=== PATIENT | male | born 2005 | race Caucasian/White ===

== ENCOUNTER 2023-01-05 16:25 | Emergency (ER) | payer MEDICAID, SELFPAY ==
[2023-01-05 16:56] VITALS: BP 123/78; PULSE 62; O2SAT 99
[2023-01-05 16:58] VITALS: BP 123/78; PULSE 68; RESP 16; TEMP 36.7; O2SAT 100; BMI 16.2
--- NOTE | 2023-01-05 17:02 | XR_ITS ---
PROCEDURE INFORMATION: Exam: XR Right Hand Exam date and time: 01/05/2023 5:13 PM Age: 17 years old Clinical indication: Injury or trauma; Other: Punched dog; Other: Punching injury; Additional info: Deformity TECHNIQUE: Imaging protocol: Radiologic exam of the right hand. Views: 3 or more views. COMPARISON: No relevant prior studies available. FINDINGS: Bones/joints: There is a nondisplaced fracture of the neck of the 5th metacarpal with slight palmar angulation of the distal fragment. No other acute fracture. Osseous alignment is otherwise normal. No arthritic change. Soft tissues: Moderate soft tissue swelling noted overlying the area of fracture IMPRESSION: Nondisplaced boxer's fracture of the 5th metacarpal
--- NOTE | 2023-01-05 17:16 | HMH.EDGENADL ---
Discharge Plan Disposition Patient Disposition: Home, Self-Care Condition: Good Prescriptions Prescriptions: New tramadol 100 mg tablet 100 mg PO Q8H PRN (Reason: pain) Qty: 10 0RF Referrals Follow up/Referrals: Provider,Referral, [Primary Care Provider] - See instructions Clinical Impressions Clinical Impression: Boxer's fracture Instructions Patient Instructions: DI for Boxer's Fracture Print Language Print Language: Spanish Discharge ED Provider: Familia Brar General Adult HPI General Chief complaint: Extremity Injury, Upper Stated complaint: AO 01/05@1600 hit floor with R Hand Little finger Time Seen by Provider: 01/05/23 17:44 Mode of Arrival: Ambulatory Source of Information: Patient Limitations: No Limitations Description of Symptoms (Recalled from ER Triage Doc. by RN): 17 yo M presents with right hand pain. pt reports that he was upset with his dog and punched the floor. swelling noted in right pinky joint. History of Present Illness HPI narrative: Patient presents to the emergency department with right hand injury. The patient states that he got mad at his dog and punched the ground. He comes in with a deformity and hand pain. He states he is right-hand dominant. States that this happened just prior to arrival. Denies any wrist pain. Denies any significant pain with movement of the right elbow Related Data Previous Rx's Medication Instructions Recorded tramadol 100 mg tablet 100 mg PO Q8H PRN pain #10 tabs 01/05/23 Allergies Allergy/AdvReac Type Severity Reaction Status Date / Time No Known Allergies Allergy Unverified 08/08/17 15:16 [facility] Disclaimer: The information contained in this section may have been updated after the patient was seen, as this information can be updated by other users. Social History Smoking Status: Current every day smoker alcohol intake: current current occupational status: unemployed Travel in the last 8 weeks: None ROS Obtained: Yes All systems reviewed & no additional complaints except as documented Musculoskeletal Musculoskeletal: Reports other (Hand deformity, pain, swelling) Physical Exam General General appearance: alert and in no apparent distress Head Head exam: atraumatic and normocephalic Eye Eye exam: Present normal appearance, PERRL and EOMI Respiratory Respiratory exam: Present normal lung sounds bilaterally Cardiovascular Cardiovascular exam: Present regular rate, normal rhythm and normal heart sounds Extremities Exam Extremities exam: Present other (Shortening of the small finger metatarsal. There is proximal to flexion of the MCP joint. Significant swelling, contusion. Capillary refills less than 2 seconds distally) Neurological Exam Neurological exam: Present alert and oriented X3 Psychiatric Psychiatric exam: Present normal affect Medical Decision Making Medical Records Medical records reviewed: Yes I reviewed the patient's medical records. [place]otero Inquiry Pt receiving controlled substance: No Vital Signs: 01/05/23 16:58 Temperature 98.1 F Temperature Source Oral Pulse Rate [Left] 68 Respiratory Rate 16 Blood Pressure [Right Arm] 123/78 Blood Pressure Mean [Right Arm] 93 02 Sat by Pulse Oximetry 100 Orders (Tests/Meds): ED MEDICATIONS Discontinued Medications Generic Name Dose Route Start Last Admin Trade Name Freq PRN Reason Stop Dose Admin Hydrocodone Bitart/Acetaminophen 2 tab 01/05/23 17:02 01/05/23 17:16 Hydrocodone/Apap 5/325 Mg Tablet PO 01/05/23 17:03 2 tab ONCE ONE Administration ORDERS Category Date Time Status Hand XR right minimum 3 views [XR hand RT min 3V] Stat Exams 01/05/23 17:02 Taken Medical Decision Narrative: Patient was evaluated x-rays are concerning for fifth metacarpal fracture. There was slight angulation I did reduce this with manipulation. Ulnar gutter splint was applied and patient was discharged home Procedures
[2023-01-05 17:51] VITALS: BP 128/89; PULSE 71; RESP 16; TEMP 36.7
== END 2023-01-05 17:54 | disposition home or self-care (01) ==
PROVIDERS: Emergency Provider Emergency Medicine
DX: S62.346A Nondisplaced fracture of base of fifth metacarpal bone, right hand, initial encounter for closed fracture (principal); W22.09XA Striking against other stationary object, initial encounter; F17.200 Nicotine dependence, unspecified, uncomplicated
CPT/HCPCS: 26605; 73130; 99283; 99284

== ENCOUNTER 2023-02-23 15:38 | Emergency (ER) | payer MEDICAID, SELFPAY ==
[2023-02-23 15:40] VITALS: BP 139/84; PULSE 113; RESP 16; TEMP 36.8; O2SAT 100; BMI 16.9
--- NOTE | 2023-02-23 16:20 | HMH.EDGENADL ---
Discharge Plan Disposition Patient Disposition: Home, Self-Care Prescriptions Prescriptions: No Action tramadol 100 mg tablet 100 mg PO Q8H PRN (Reason: pain) Qty: 10 0RF Referrals Follow up/Referrals: Provider,Deborah, [Primary Care Provider] - See instructions Activity Restrictions/Add. Instructions Additional Instructions/Restrictions: You had no evidence of any spinal emergency including fracture dislocation infections herniated disc etc. Please return with the symptoms that we discussed. Otherwise you may take Tylenol and ibuprofen as needed for your symptoms. Clinical Impressions Clinical Impression: Abrasion of back Instructions Patient Instructions: DI for Low Back Pain Discharge ED Provider: Renee Sprague General Adult HPI General Chief complaint: Back Pain/Injury Stated complaint: back and shoulder pain Time Seen by Provider: 02/23/23 16:07 Mode of Arrival: Ambulatory Source of Information: Patient Limitations: No Limitations Description of Symptoms (Recalled from ER Triage Doc. by RN): Presents to the ED with complaints of lower back pain that started yesterday that is worse when standing. Reports Ibuprofen 800mg at 0500 and muscle cream yesterday with no relief. History of Present Illness HPI narrative: Patient is a 17-year-old male presenting with back pain. States that he was swimming yesterday and that he swam into the lining of the siding of a pool and scraped and cut his back. He felt okay until about 30 minutes later when he started lifting water jugs when he started to have pain located in the paraspinal musculature in bilateral lower back. He denies any other significant trauma to his back. No lower extremity weakness. He denies any saddle anesthesia or urinary or bowel incontinence or urinary retention history of injection drug use fevers or history of cancer. He has taken ibuprofen without significant improvement at home. Related Data Previous Rx's Medication Instructions Recorded tramadol 100 mg tablet 100 mg PO Q8H PRN pain #10 tabs 01/05/23 Allergies Allergy/AdvReac Type Severity Reaction Status Date / Time No Known Allergies Allergy Unverified 08/08/17 15:16 [facility] Disclaimer: The information contained in this section may have been updated after the patient was seen, as this information can be updated by other users. Social History (Updated 01/05/23 @ 17:44 by Familia Brar MD) Smoking Status: Current every day smoker alcohol intake: current current occupational status: unemployed Travel in the last 8 weeks: None ROS Obtained: Yes All systems reviewed & no additional complaints except as documented Physical Exam General General appearance: alert Respiratory Respiratory exam: Present normal lung sounds bilaterally; Absent wheezes Cardiovascular Cardiovascular exam: Present regular rate; Absent tachycardia Back Exam Back exam: Present other (Abrasions in the location where he is hurting which is bilateral lumbosacral area paraspinal musculature tenderness there is no midline tenderness or step-offs or deformities he has normal lower extremity strength flexion extension dorsiflexion plantarflexion and sensation) Neurological Exam Neurological exam: Present alert and oriented X3 Medical Decision Making Sotero Inquiry Pt receiving controlled substance: No Vital Signs: 02/23/23 15:40 Temperature 98.2 F Temperature Source Oral Pulse Rate [Right] 113 H Respiratory Rate 16 Blood Pressure [Right Arm] 139/84 Blood Pressure Mean [Right Arm] 102 Blood Pressure Source [Right Arm] Automatic Cuff Blood Pressure Position [Right Arm] Sitting 02 Sat by Pulse Oximetry 100 Oxygen Delivery Method Room Air Medical Decision Narrative: Patient is a 17-year-old male with some superficial abrasions on his paraspinal musculature and is a location of pain and tenderness. He has no midline pain to suggest that he has any bony abnormalities and a
[2023-02-23 16:22] VITALS: BP 124/64; PULSE 74; RESP 16; TEMP 36.8; O2SAT 100
== END 2023-02-23 16:24 | disposition home or self-care (01) ==
PROVIDERS: Emergency Provider Student in an Organized Health Care Education/Training Program
DX: M25.519 Pain in unspecified shoulder; F17.200 Nicotine dependence, unspecified, uncomplicated; W22.09XA Striking against other stationary object, initial encounter; Y93.11 Activity, swimming; S30.810A Abrasion of lower back and pelvis, initial encounter
CPT/HCPCS: 99282; 99283